=== PATIENT | male | born 1995 | race Caucasian/White ===

== ENCOUNTER 2017-11-30 20:42 | Emergency (ER) | payer OTHER ==
[2017-11-30 20:45] VITALS: BP 131/95
--- NOTE | 2017-11-30 21:10 | ED CARDIAC/CP/PALPITATIONS ---
History of Present Illness General Chief Complaint: Chest Pain Stated Complaint: CP Source: patient Exam Limitations: no limitations Vital Signs & Intake/Output Vital Signs & Intake/Output Vital Signs Date Time Temp Pulse Resp B/P B/P Pulse O2 O2 Flow FiO2 Mean Ox Delivery Rate 11/30 2105 Room Air 11/30 2044 96.9 73 17 131/95 97 Room Air ED Intake and Output 12/01 0000 11/30 1200 Intake Total 0 Output Total Balance 0 Intake, Oral 0 Allergies Coded Allergies: No Known Allergies (11/30/17) Triage Note: PT TO ED WITH C/O CONSTANT MIDSTERNAL NON RADIATING CHEST PAIN X 3 DAYS. ALSO REPORTS CHILLS, NAUSEA, DIARRHEA FOR SAME PERIOD OF TIME. DENIES SOB OR ABD PAIN. Triage Nurses Notes Reviewed? yes Onset: Gradual Duration: day(s):, waxing and waning Timing: recent history Quality/Severity: moderate Location: central Radiation: no radiation Activities at Onset: none Modifying Factors: Worsens With: palpation. HPI: 22 yo gentleman with 3 days of central chest discomfort, mild, with occasional episodes of diarrhea, chills, nausea. He is presently feeling better, is able to tolerate fluids, has no abdominal pain, rashes, dyspnea, cough, phlegm. He is otherwise well. Past History Travel History Traveled to [place] past 21 day No Medical History Any Pertinent Medical History? none Surgical History Surgical History: non-contributory Psychosocial History What is your primary language Amharic Tobacco Use: Quit >30 days ago ETOH Use: denies use Illicit Drug Use: denies illicit drug use Family History Hx Contributory? No Review of Systems Review of Systems Constitutional: Reports: no symptoms. EENTM: Reports: no symptoms. Respiratory: Reports: no symptoms. Cardiovascular: Reports: no symptoms. GI: Reports: no symptoms. Genitourinary: Reports: no symptoms. Musculoskeletal: Reports: no symptoms. Skin: Reports: no symptoms. Neurological/Psychological: Reports: no symptoms. Hematologic/Endocrine: Reports: no symptoms. Immunologic/Allergic: Reports: no symptoms. All Other Systems: Reviewed and Negative Physical Exam Physical Exam General Appearance: well developed/nourished, no apparent distress Head: atraumatic, normal appearance Eyes: Bilateral: normal appearance. Ears, Nose, Throat: normal pharynx, normal ENT inspection Neck: normal inspection, supple, full range of motion Respiratory: no respiratory distress, lungs clear, pectus carinatum, mildly tender to palpation Cardiovascular: regular rate/rhythm Gastrointestinal: normal bowel sounds, soft, non-tender Back: normal inspection, normal range of motion Extremities: normal inspection, normal capillary refill, normal range of motion, no edema Neurologic/Psych: no motor/sensory deficits, awake, alert, oriented x 3 Skin: intact, normal color, warm/dry Core Measures ACS in differential dx? No CVA/TIA Diagnosis No Sepsis Present: No Sepsis Focused Exam Completed? No Progress Differential Diagnosis: AMI (co), costochondritis vs other. Plan of Care: Orders Procedure Date/time Status TROPONIN LEVEL 11/30 2110 Complete LIPASE 11/30 2110 Complete HEPATIC FUNCTION PANEL 11/30 2110 Complete CBC WITHOUT DIFFERENTIAL 11/30 2110 Complete BASIC METABOLIC PANEL 11/30 2110 Complete AMYLASE 11/30 2110 Complete EKG 11/30 2042 Active Laboratory Tests 11/30/172118: Anion Gap 7, Estimated GFR > 60, BUN/Creatinine Ratio 16.0, Glucose 107 H, Calcium 9.6, Total Bilirubin 0.7, Direct Bilirubin 0, AST 23, ALT 40, Alkaline Phosphatase 54, Troponin I < 0.01, Total Protein 7.0, Albumin 4.5, Amylase 78, Lipase 107, CBC w Diff NO MAN DIFF REQ, RBC 4.95, MCV 90.7, MCH 30.9, MCHC 34.0, RDW 12.4, MPV 8.0, Gran % 61.8, Lymphocytes % 26.6, Monocytes % 9.6 H, Eosinophils % 1.6, Basophils % 0.4, Absolute Granulocytes 4.6, Absolute Lymphocytes 2.0, Absolute Monocytes 0.7 H, Absolute Eosinophils 0.1, Absolute Basophils 0 Diagnostic Imaging: Viewed by Me: Radiology Read. Discussed w/RAD: Radiology Read. CXR Impression: PATIENT: GAVIOTA MCDUFFIE PRESENT AGE: 22 PATIENT ACCOUNT NO: [id number] : 95 LOCATION: [facility] ORDERING PHYSICIAN: Robin Shukla MD SERVICE DATE: 11/30/17 EXAM TYPE: RAD - XRY- CHEST XRAY, TWO VIEWS EXAMINATION: XR CHEST CLINICAL INFORMATION: Chest pain COMPARISON: None TECHNIQUE: 2 views of the chest were obtained. FINDINGS: No significant abnormality is noted involving the heart, lungs, mediastinum, bony thorax or soft tissues. IMPRESSION: Unremarkable examination. DICTATED BY: Aron Bolanos MD DATE/TIME DICTATED:11/30/172241 [employer] MAN:EUGENIA DATE/TIME TRANSCRIBED:11/30/172241 CONFIDENTIAL, DO NOT COPY WITHOUT APPROPRIATE AUTHORIZATION. <Electronically signed in Other Vendor System> SIGNED BY: Aron Bolanos MD 11/30/172245 Initial ED EKG: normal axis, normal intervals, normal p-waves, normal QRS complex, normal sinus rhythm Departure Departure Disposition: HOME OR SELF CARE Condition: Stable Clinical Impression Primary Impression: Chest pain Departure Forms: Customer Survey General Discharge Information Comments perc score negative... I doubt PE After supportive measures, he is feeling better. pt to take ibuprofen prn... close follow up advised. Critical Care Note Critical Care Note Critical Care Time: non-applicable
[2017-11-30 21:28] LABS: ABSOLUTE BASOPHIL COUNT 0 /CUMM (0.0-0.2); ABSOLUTE EOSINOPHIL COUNT 0.1 /CUMM (0.0-0.7); ABSOLUTE GRANULOCYTE CT 4.6 /CUMM (1.4-6.5); ABSOLUTE MONOCYTE COUNT 0.7 /CUMM (0.10-0.60); BASOPHIL % 0.4 % (0.0-2.0); EOSINOPHIL % 1.6 % (0-5); GRANULOCYTE % 61.8 % (42.2-75.2); HEMATOCRIT 44.9 % (42-52); MEAN CORPUSCULAR HGB 30.9 PG (27.0-31.0); MEAN CORPUSCULAR VOLUME 90.7 FL (80.0-94.0); PLATELET COUNT 237 /CUMM (130-400); RBC DISTRIBUTION WIDTH 12.4 % (11.5-14.5); RED BLOOD CELL CT 4.95 /CUMM (4.70-6.10); WHITE BLOOD CELL COUNT 7.4 /CUMM (4.8-10.8)
--- NOTE | 2017-11-30 22:46 | RADIOLOGY REPORT ---
EXAMINATION: XR CHEST CLINICAL INFORMATION: Chest pain COMPARISON: None TECHNIQUE: 2 views of the chest were obtained. FINDINGS: No significant abnormality is noted involving the heart, lungs, mediastinum, bony thorax or soft tissues. IMPRESSION: Unremarkable examination.
== END 2017-11-30 22:49 ==
LOC: ERH 20:42
PROVIDERS: Pediatrics
DX: R07.89 Other chest pain (principal); Z87.891 Personal history of nicotine dependence
CPT/HCPCS: 71046; 93005; 93010